=== PATIENT | female | born 1970 | race Caucasian/White ===

== ENCOUNTER 2019-01-28 23:29 | Inpatient (IN) | payer MEDICAID ==
[~2019-01-28] VITALS: Ht 167.6 cm; Wt 86.8 kg
[2019-01-28] MEDS ORDERED: SEROQUEL100 MG PO (23:30)
[2019-01-28] MEDS ORDERED: KLONOPIN0.5 MG PO (23:31)
[2019-01-28] MEDS ORDERED: GABAPENTIN100 MG PO (23:31)
[2019-01-28] MEDS ORDERED: CHRONULAC30 ML PO (23:32)
[2019-01-28] MEDS ORDERED: ALBUTEROL SULF8.5 GM INH (23:32)
[2019-01-28] MEDS ORDERED: METOPROLOL TART50 MG PO (23:33)
[2019-01-28] MEDS ORDERED: PROTONIX40 MG PO (23:33)
--- NOTE | 2019-01-28 23:44 | NUR ---
VERBAL ORDER TO CONTINUE OCLEOTIDE FROM [facility] GIVEN BY CATALINA BARRERA
[2019-01-29] VITALS (26 sets, daily range): BP systolic 110–132; BP diastolic 49–96; Ht 167.6 cm; Wt 86.8 kg
[2019-01-29 00:22] LABS: BASOPHILS 1.3 % (0-2); EOSINOPHILS 0.6 % (0-7); HEMOGLOBIN 5.9 g/dL (12-16); IMMATURE GRANULOCYTES 0.6 % (0-5); LYMPHOCYTES 26.4 % (15-50); MCHC 29.8 g/dL (31.0-37.0); MCV 65.8 fL (80.0-100.0); MONOCYTES 19.3 % (2-11); NEUTROPHILS 51.8 % (40-80); RBC 3.01 10x6/uL (4.00-5.40); RDW 27.9 % (11.5-14.5)
[2019-01-29 00:23] LABS: HEMATOCRIT 19.8 % (36.0-48.0); MCH 19.6 pg (26.0-34.0); PLATELET COUNT 159 10x3/uL (130-400)
--- NOTE | 2019-01-29 00:40 | NUR ---
PT ARRIVED ON UNIT, PLACED ON ICU MONITORS - TEMP ELEVATED 100.[address] CERRATO CONTACTED REGARDING CRITICAL LOW H&H - 4 UNITS PRBC ORDERED - RECHECK WITH AM LABS - 2 UNITS IF <7 ADMISSIONS ASSESSMENT COMPLETED SEE FLOWSHEET. VSS CPOC
[2019-01-29 00:47] LABS: ALBUMIN 2.4 g/dL (3.4-5.0); ANION GAP 14.4 mmol/L (8-16); BILIRUBIN - TOTAL 1.67 mg/dL (0.2-1.3); CALCIUM 7.4 mg/dL (8.5-10.1); CARBON DIOXIDE 24.4 mmol/L (21.0-32.0); POTASSIUM - SERUM 3.8 mmol/L (3.5-5.1); PROTEIN - SERUM 5.8 g/dL (6.4-8.2)
[2019-01-29 01:31] LABS: BASOPHILS 2 % (0-2); EOSINOPHILS 1 % (0-7); LYMPHOCYTES 34 % (15-50); MONOCYTES 19 % (2-11); NEUTROPHILS 44 % (40-80)
[2019-01-29 01:32] LABS: HYPOCHROMASIA 3+; POIKILOCYTOSIS 2+
[2019-01-29 01:33] LABS: PLATELET ESTIMATE NORMAL; PLATELET MORPHOLOGY GIANT PLTS PRESENT
--- NOTE | 2019-01-29 02:05 | NUR ---
VLADIMIR NOTIFIED REGARDING TEMP 101.5 - NEW ORDERS RECEIVED
--- NOTE | 2019-01-29 02:06 | NUR ---
1 UNIT PRBC INITIATED
--- NOTE | 2019-01-29 02:06 | NUR ---
BC X2 - UA WITH MICRO - 1 GRAM Q12 LEVAQUIN - MERREM Q8 - ORDERS PER DWORKIN FOR 101.5 TEMPERATURE
--- NOTE | 2019-01-29 03:05 | NUR ---
1 UNIT PRBC INITIATED
--- NOTE | 2019-01-29 03:45 | NUR ---
PATIENT REQUESTED BEDPAN - 475 CC URINE OUTPUT - DARK CONCENTRATED FOUL SMELL
--- NOTE | 2019-01-29 03:54 | NUR ---
REASSESSMENT COMPLETED SEE FLOWSHEET
--- NOTE | 2019-01-29 04:30 | NUR ---
1 UNIT PRBC INTIATED
--- NOTE | 2019-01-29 05:07 | NUR ---
PATIENT RESTING COMFORTABLY EYES CLOSED PRBC INFUSING. VSS CPOC
--- NOTE | 2019-01-29 05:40 | NUR ---
1 UNIT PRBC INITIATED
[2019-01-29 05:51] LABS: APPEARANCE HAZY (CLEAR); COLOR YELLOW (YELLOW)
[2019-01-29 05:52] LABS: BACTERIA FEW /hpf (NONE SEEN); BILIRUBIN 1+ (NEGATIVE); EPITHELIAL CELLS RARE /hpf (0-5); GLUCOSE NEGATIVE (NEGATIVE); KETONE NEGATIVE (NEGATIVE); NITRITE NEGATIVE (NEGATIVE); PROTEIN NEGATIVE (NEGATIVE); RED CELLS - URINE 0-5 /hpf (0-5); UROBILINOGEN NORMAL (NORMAL)
[2019-01-29 07:14] LABS: MCH 23.8 pg (26.0-34.0); MCHC 30.5 g/dL (31.0-37.0); PLATELET COUNT 147 10x3/uL (130-400); RDW 28.1 % (11.5-14.5); WBC 6.5 10x3/uL (4.8-10.8)
[2019-01-29 07:18] LABS: HEMATOCRIT 34.8 % (36.0-48.0); HEMOGLOBIN 10.6 g/dL (12-16); RBC 4.46 10x6/uL (4.00-5.40)
[2019-01-29 07:19] LABS: ALBUMIN 2.7 g/dL (3.4-5.0); ALKALINE PHOSPHATASE 84 U/L (46-116); ALT (SGPT) 43 U/L (10-68); BILIRUBIN - TOTAL 2.26 mg/dL (0.2-1.3); CALC OSMOLALITY 285 mosm/kg (275-300); CALCIUM 7.4 mg/dL (8.5-10.1); CARBON DIOXIDE 23.9 mmol/L (21.0-32.0); CHLORIDE - SERUM 107 mmol/L (98-107); CREATININE - SERUM 0.8 mg/dL (0.6-1.3); GLUCOSE 96 mg/dL (74-106); POTASSIUM - SERUM 3.9 mmol/L (3.5-5.1); PROTEIN - SERUM 6.2 g/dL (6.4-8.2); SODIUM 141 mmol/L (136-145); UREA NITROGEN 26 mg/dL (7-18); eGFR NON AFRICAN AMERICAN 80 mL/min (90-120)
[2019-01-29 07:48] LABS: EOSINOPHILS 3 % (0-7); LYMPHOCYTES 34 % (15-50); MONOCYTES 1 % (2-11); NEUTROPHILS 61 % (40-80); PLATELET ESTIMATE NORMAL
[2019-01-29 07:55] LABS: APTT 34.7 SECONDS (22.8-39.4); INR 1.5 (0.85-1.17); PROTIME 17.6 SECONDS (11.6-15.0)
--- NOTE | 2019-01-29 07:55 | NUR ---
CONTINENT VOID NOTED VIA BEDSIDE TOILET. NO ACUTE DISTRESS NOTED. WILL CONTINUE PLAN OF CARE.
--- NOTE | 2019-01-29 09:51 | NUR ---
DR CERRATO NOTIFIED OF CRITICALLY HIGH AMMONIA, STATED WILL PLACE ORDERS. ALSO STATED WILL ENDOSCOPY THURSDAY, OKAY TO START CLEAR LIQUID DIET NOW, AND WILL CONTINUE IV SANDOSTATIN AND PROTONIX FOR THE NEXT 24 HOURS. NO ACUTE DISTRESS NOTED. PT NOTED TO HAVE CONSTANT DRY HANKING COUGH. WILL NOTIFY DR GILBERT WHEN HE COMES TO SEE PT. PT INDEPENDENT IN BED. WILL CONTINUE PLAN OF CARE.
--- NOTE | 2019-01-29 10:25 | NUR ---
PER DR CERRATO, WILL EGD TODAY INSTEAD OF THURSDAY. PT HAS SPOKEN WITH PHYSICIANS AND ALL QUESTIONS AND CONCERNS ADRESSED. NO ACUTE DISTRESS NOTED. WILL CONTINUE PLAN OF CARE.
--- NOTE | 2019-01-29 11:19 | NUR ---
OXYGEN SATRUATION TRENDING 88%-91%. OXYGEN PLACED AT 3L VIA NC AT THIS TIME. OXYGEN SATURATION NOW AT 94%. DR EDWARDS NOTIFIED.
--- NOTE | 2019-01-29 11:22 | NUR ---
OXYGEN REDUCED TO 2L VIA NC PER [employer] PROFILER.
--- NOTE | 2019-01-29 13:25 | NUR ---
LYING IN BED RESTING AT THIS TIME. NO ACUTE DISTRESS NOTED. DENIES ANY NEEDS. RESPITATIONS STEADY AND UNLABORED. AWAKENS EASILY WHEN SPOKEN TO. PT INDEPENDENT IN BED AND REPOSITIONS Q2H. WILL CONTINUE PLAN OF CARE.
--- NOTE | 2019-01-29 14:59 | NUR ---
PT STATES SHE USES [facility] IN [place].
--- NOTE | 2019-01-29 16:15 | NUR ---
PER DR CERRATO, NO NEED FOR SERIAL H&H, WILL RECHECK LEVELS IN AM.
[2019-01-29 16:32] LABS: UDS - AMPHET NEGATIVE QUAL (NEGATIVE); UDS - BARB NEGATIVE QUAL (NEGATIVE); UDS - BENZO NEGATIVE QUAL (NEGATIVE); UDS - COCAINE NEGATIVE QUAL (NEGATIVE); UDS - OPIATE POSITIVE QUAL (NEGATIVE); UDS - PCP NEGATIVE QUAL (NEGATIVE); UDS - THC POSITIVE QUAL (NEGATIVE)
--- NOTE | 2019-01-29 18:16 | NUR ---
CONTINENT VOID NOTED VIA BED QUEEN AT THIS TIME. PT DENIES ANY NEEDS. NO ACUTE DISTRESS NOTED. WILL CONTINUE PLAN OF CARE.
--- NOTE | 2019-01-29 19:15 | NUR ---
SHIFT ASSESSMENT COMPLETED SEE FLOWSHEET. PATIENT STATES SHE IS IN PAIN - SEE EMAR FOR PRN MEDICATION ADMINISTRATION AND PAIN ASSESSMENT. DENIES ADDITIONAL NEEDS. VSS CPOC
--- NOTE | 2019-01-29 20:18 | NUR ---
PROVIDED PATIENT WITH BEVERAGE PER REQUEST
--- NOTE | 2019-01-29 23:45 | NUR ---
PT UP TO BEDSIDE COMMONDE. DYSPNEA ON EXERTION UNABLE TO MAINTAIN O2 SATS WITHOUT NASAL CANNULA - LIQUID DARK STOOL NOTED - STOOL SAMPLE COLLECTED AT THIS TIME. PATIENT IS ABLE TO AMBULATE HERSELF FROM BED TO CHAIR. PLACED PATIENT ON ALL ICU MONITORS UPON RETURNING TO BED. SHIFT ASSESSMENT COMPLETED SEE FLOWSHEET. PATIENT SAYS PAIN IS BETTER AND SHE IS FEELING BETTER. VSS CPOC
[2019-01-30] VITALS (25 sets, daily range): BP systolic 92–137; BP diastolic 56–86
--- NOTE | 2019-01-30 03:15 | NUR ---
REASSESSMENT COMPLETED SEE FLOWSHEET
--- NOTE | 2019-01-30 05:20 | NUR ---
PATIENT DENIES NEEDS AT THIS TIME VSS WILL CONTINUE TO MONITOR
[2019-01-30 07:29] LABS: ALBUMIN 2.2 g/dL (3.4-5.0); ALKALINE PHOSPHATASE 66 U/L (46-116); ALT (SGPT) 34 U/L (10-68); BILIRUBIN - TOTAL 1.27 mg/dL (0.2-1.3); CARBON DIOXIDE 24.1 mmol/L (21.0-32.0); CHLORIDE - SERUM 105 mmol/L (98-107); GLUCOSE 108 mg/dL (74-106); POTASSIUM - SERUM 3.6 mmol/L (3.5-5.1); PROTEIN - SERUM 5.5 g/dL (6.4-8.2); SODIUM 136 mmol/L (136-145)
[2019-01-30 07:32] LABS: CALC OSMOLALITY 271 mosm/kg (275-300); CREATININE - SERUM 0.5 mg/dL (0.6-1.3); UREA NITROGEN 10 mg/dL (7-18); eGFR NON AFRICAN AMERICAN > 90 mL/min (90-120)
[2019-01-30 07:33] LABS: CALCIUM 6.8 mg/dL (8.5-10.1)
[2019-01-30 08:13] LABS: BASOPHILS 2.2 % (0-2); EOSINOPHILS 4.7 % (0-7); HEMATOCRIT 31.3 % (36.0-48.0); HEMOGLOBIN 9.7 g/dL (12-16); IMMATURE GRANULOCYTES 0.8 % (0-5); LYMPHOCYTES 35.9 % (15-50); MCH 23.8 pg (26.0-34.0); MCV 76.7 fL (80.0-100.0); MONOCYTES 19.2 % (2-11); NEUTROPHILS 37.2 % (40-80); PLATELET COUNT 107 10x3/uL (130-400); RBC 4.08 10x6/uL (4.00-5.40); RDW 26.7 % (11.5-14.5); WBC 3.7 10x3/uL (4.8-10.8)
--- NOTE | 2019-01-30 08:22 | NUR ---
UP IN BED AWAKE AT THIS TIME. DENIES ANY NEEDS. NOTED TO STILL HAVE SOME DRY COUGHING AT TIMES. PT DENIES ANY NEEDS. NO ACUTE DISTRESS NOTED. WILL CONTINUE PLAN OF CARE.
--- NOTE | 2019-01-30 10:11 | NUR ---
AM MEDS GIVEN. PT REPORTING PAIN 8/10 ON ABDOMEN THAT IS INTERMITTENT. DILAUDID 1MG IV GIVEN PER ORDERS. PT ASKED TO PLACE CALL TO BRITT AT [phone]. DID NOT GET AN ANSWER. WILL TRY AGAIN LATER.
--- NOTE | 2019-01-30 11:39 | NUR ---
PT ASKING ABOUT HER HOME SEROQUIL AND KLONOPIN, ORDERS RECIEVED BY DR GILBERT.
--- NOTE | 2019-01-30 13:08 | NUR ---
ATTEMPTED TO CONTACT PTS EMERGENCY CONTACT PER PT REQUEST. NO ANSWER NOTED.
--- NOTE | 2019-01-30 15:20 | NUR ---
UP IN BED WATCHING TV AT THIS TIME. NO ACUTE DISTRESS NOTED. LETTY ANY NEEDS. WILL CONTINUE PLAN OF CARE.
--- NOTE | 2019-01-30 17:21 | NUR ---
CONTINENT VOID NOTED AT THIS TIME AT BEDSIDE TOILET. NO ACUTE DISTRESS NOTED. PT DENIES ANY NEEDS. WILL CONTINUE PLAN OF CARE.
--- NOTE | 2019-01-30 19:20 | NUR ---
RECEIVED PATIENT CARE. VSS, PATIENT FOUND TEARFUL, WORRIED ABOUT HER SON STEALING HER CARD. REQUESTED THIS NURSE TO PHONE A FRIEND FOR HER, LEFT MESSAGE ON VOICEMAIL. SHIFT ASSESSMENT COMPLETED SEE FLOWSHEET. CPOC
--- NOTE | 2019-01-30 19:40 | NUR ---
PT REQUESTED PRN PAIN MEDICATION, SEE EMAR FOR PAIN ASSESSMENT AND ADMINISTRATION
[2019-01-31] VITALS (9 sets, daily range): BP systolic 110–159; BP diastolic 56–98
--- NOTE | 2019-01-31 01:00 | NUR ---
PT REQUESTED PRN PAIN MEDICATION AT THIS TIME SEE EMAR FOR PAIN SCALE AND ADMINISTRATION
[2019-01-31 04:33] LABS: HEMATOCRIT 29.9 % (36.0-48.0); HEMOGLOBIN 9.1 g/dL (12-16); MCH 23.6 pg (26.0-34.0); MCHC 30.4 g/dL (31.0-37.0); MCV 77.7 fL (80.0-100.0); PLATELET COUNT 93 10x3/uL (130-400); RBC 3.85 10x6/uL (4.00-5.40); RDW 27.3 % (11.5-14.5); WBC 3.5 10x3/uL (4.8-10.8)
[2019-01-31 04:47] LABS: ALBUMIN 2.1 g/dL (3.4-5.0); ALKALINE PHOSPHATASE 74 U/L (46-116); ALT (SGPT) 35 U/L (10-68); BILIRUBIN - TOTAL 1.06 mg/dL (0.2-1.3); CARBON DIOXIDE 29.1 mmol/L (21.0-32.0); CHLORIDE - SERUM 105 mmol/L (98-107); CREATININE - SERUM 0.6 mg/dL (0.6-1.3); GLUCOSE 120 mg/dL (74-106); POTASSIUM - SERUM 3.2 mmol/L (3.5-5.1); PROTEIN - SERUM 5.4 g/dL (6.4-8.2); SODIUM 137 mmol/L (136-145); eGFR NON AFRICAN AMERICAN > 90 mL/min (90-120)
[2019-01-31 04:48] LABS: CALC OSMOLALITY 272 mosm/kg (275-300); CALCIUM 6.7 mg/dL (8.5-10.1); UREA NITROGEN 7 mg/dL (7-18)
--- NOTE | 2019-01-31 04:50 | NUR ---
CORRECTED CALCIUM 8.22 - NOT A CRITICALLY LOW RESULT. VSS CPOC
--- NOTE | 2019-01-31 05:25 | NUR ---
POTASSIUM REPLETION REQUIRED, PATIENT RECEIVED 40MEQ POTASSIUM POWDER - SEE EMAR FOR ADMINISTRATION
--- NOTE | 2019-01-31 07:00 | NUR ---
ASSESSMENT COMPLETE PER FLOWSHEET. VOICES NO CO AT TIME.
[2019-01-31 08:46] LABS: EOSINOPHILS 3 % (0-7); LYMPHOCYTES 47 % (15-50); MONOCYTES 9 % (2-11); NEUTROPHILS 40 % (40-80); PLATELET ESTIMATE DECREASED
--- NOTE | 2019-01-31 10:50 | NUR ---
SLEEPING NO DISTRESS NOTED. SR UP X 2. CALL LIGHT WITHIN REACH.
--- NOTE | 2019-01-31 12:40 | NUR ---
report called to maira polanco.
--- NOTE | 2019-01-31 12:58 | NUR ---
NUTRITION F/U PT TOLERATING FULL LIQUID DIET. FOR TX TO FLOOR. WILL CONTINUE TO PROVIDE DIET, MONITOR INTAKE. RD FOLLOWING
--- NOTE | 2019-01-31 14:08 | NUR ---
transfer to room 1205 via .
--- NOTE | 2019-01-31 14:10 | NUR ---
RECEIVED PT TO ROOM 1205 VIA WHEELCHAIR, PT ABLE TO AMBULATE FROM WHEELCHAIR TO CHAIR IN ROOM. ORIENED PT TO ROOM AND CALL LIGHT. PROVIDED PT WITH AMES FOND DU LAC SODA AND EXTRA GOWN. PT ON DROPLET ISOLATION FOR THE FLU. CALL LIGHT IN REACH, NAD NOTED, WILL CONTINUE TO MONITOR.
--- NOTE | 2019-01-31 23:32 | NUR ---
PATIENT RESTING IN BED WITH NO S/S OF DISTRESS. BROUGHT PATIENT FULL LIQUID SNACKS PER HER REQUEST. PATIENT DENIES OTHER NEEDS AT THIS TIME. BED IN LOWEST POSITION AND CALL LIGHT WITHIN REACH. ENCOURAGED THE PATIENT TO CALL IF SHE HAS NEEDS. WILL CONTINUE TO MONITOR.
[2019-02-01] VITALS: BP 122/69
[2019-02-01 04:00] VITALS: BP 132/73
[2019-02-01 06:11] LABS: BASOPHILS 0.4 % (0-2); EOSINOPHILS 0 % (0-7); HEMATOCRIT 31.1 % (36.0-48.0); HEMOGLOBIN 9.3 g/dL (12-16); IMMATURE GRANULOCYTES 0.4 % (0-5); LYMPHOCYTES 21.3 % (15-50); MCH 23.1 pg (26.0-34.0); MCHC 29.9 g/dL (31.0-37.0); MCV 77.2 fL (80.0-100.0); MONOCYTES 2.9 % (2-11); PLATELET COUNT 104 10x3/uL (130-400); RBC 4.03 10x6/uL (4.00-5.40); RDW 26.8 % (11.5-14.5)
[2019-02-01 06:24] LABS: WBC 2.4 10x3/uL (4.8-10.8)
[2019-02-01 06:42] LABS: ALBUMIN 2.4 g/dL (3.4-5.0); ALKALINE PHOSPHATASE 118 U/L (46-116); ALT (SGPT) 37 U/L (10-68); BILIRUBIN - TOTAL 0.85 mg/dL (0.2-1.3); CALC OSMOLALITY 276 mosm/kg (275-300); CALCIUM 7.2 mg/dL (8.5-10.1); CARBON DIOXIDE 25.9 mmol/L (21.0-32.0); CHLORIDE - SERUM 104 mmol/L (98-107); CREATININE - SERUM 0.5 mg/dL (0.6-1.3); POTASSIUM - SERUM 3.6 mmol/L (3.5-5.1); PROTEIN - SERUM 6.2 g/dL (6.4-8.2); SODIUM 137 mmol/L (136-145); UREA NITROGEN 6 mg/dL (7-18); eGFR NON AFRICAN AMERICAN > 90 mL/min (90-120)
[2019-02-01 07:22] LABS: GLUCOSE 187 mg/dL (74-106)
[2019-02-01 07:23] LABS: PHOSPHOROUS 1.5 mg/dL (2.5-4.9)
[2019-02-01 07:54] VITALS: BP 133/76
--- NOTE | 2019-02-01 10:55 | NUR ---
PAGEDimitry RUTLEDGE AND DR. COX, WAITING RISK PREVENTION ENGINEER BACK.
[2019-02-01 12:23] VITALS: BP 140/75
[2019-02-01] MEDS ORDERED: XIFAXAN550 MG PO (14:51)
[2019-02-01] MEDS ORDERED: SEROQUEL25 MG PO (14:51)
[2019-02-01] MEDS ORDERED: Nicoderm [PBKC] TRANSDERM (14:51)
[2019-02-01] MEDS ORDERED: CHRONULAC30 ML PO (14:52)
[2019-02-01] MEDS ORDERED: VITAMIN B-1100 M1 PO (14:52)
[2019-02-01] MEDS ORDERED: FOLIC ACID1 MG PO (14:52)
[2019-02-01] MEDS ORDERED: SINGULAIR10 MG PO (14:52)
[2019-02-01] MEDS ORDERED: MULTI-DAY VITAM1 TAB PO (14:52)
[2019-02-01] MEDS ORDERED: PREDNISONE10 MG PO (14:53)
[2019-02-01] MEDS ORDERED: LEVAQUIN750 MG PO (14:53)
[2019-02-01] MEDS ORDERED: Tessalon Perle PO (14:54)
--- NOTE | 2019-02-01 16:33 | MORECARE ---
CASE MANAGEMENT DISCHARGE SUMMARY PATIENT: RICH FARAH UNIT: [id number] ADM DATE: 01/28/19 AGE: 48 : 66 SEX: F ROOM/BED: D.1205 AUTHOR: GINA,DOC PHYSICIAN: REFERRING PHYSICIAN: CORBIN GILBERT MD DATE OF SERVICE: 02/01/19 Discharge Plan Patient Name: RICH FARAH Facility: [facility]:[place] : 1970 Planned Disposition: Home Anticipated Discharge Date: 02/01/19 Discharge Date: Expected LOS: 4 Initial Reviewer: [email or web address] Initial Review Date: 02/01/2019 Generated: 02/01/19 5:32 pm Comments DCP- Discharge Planning Updated by [id number]: Ember Barlow on 01/31/19 3:[address] 1530 HAD NOT RECEIVED TELEPHONE CALL FROM [facility] MANA[facility]'S OFFICE. LOCATED A PHONE NUMBER- [phone]. SHE HAD RECEIVED NOTIFICATION. REQUESTED MEDICAL DOCUMENTATION BE FAXED TO [phone]. SPOKE WITH THE PATIENT TO OBTAIN HER CONSENT TO SEND THE FACE SHEET. THEY HAD REQUESTED SPECIFIC INFORMATION. PATIENT CONSENTED. FAXED FACE SHEET TO ABOVE NUMBER. GAVE THE PATIENT COPY OF FAX CONFIRMATION AND FACE SHEET. COPY TO HER CHART IN CASE ANY QUESTIONS ARISE. RECEIVED A TELEPHONE CALL FROM VAULT WORKER'S OFFICE, TRUDY. SHE ALSO REQUESTED INFORMATION AND WANTED TO DISCUSS PATIENT'S HOSPITALIZATION. CM ADVISED I HAD FAXED THE FACE SHEET WITH HER ADMITTING DATE AND TIME. ADVISED THE PATIENT HAD BEEN TRANSFERED TO [facility] THIS AFTERNOON FROM ICU. DCP- Discharge Planning Updated by [id number]: Ember Barlow on 01/31/19 1:[address] PRIMARY NURSE, SARA, NOTIFIED CM OF REQUEST BY PATIENT TO CALL [facility]'S OFFICE AT [phone] TO ADVISE SHE IS HOSPITALIZED. SHE STATES SHE HAS A COURT DATE TOMORROW. TELEPHONE ABOVE NUMBER. SPOKE W/ DEVEN Dhaliwal. HE STATED HE WOULD HAVE TO CALL THE MANAGER CATEGORY'S OFFICE AND WILL GET BACK TO . CM PROVIDED 2 PHONE NUMBERS [phone] AND [phone] FOR CALL BACK CONTACT. DCPIA - Discharge Planning Initial Assessment Updated by [id number]: Shelly Lockhart on 02/01/19 4:32 pm * Is the patient Alert and Oriented? Yes * How many steps to enter\exit or inside your home? * PCP [place] * Pharmacy [facility] in [place] * Preadmission Environment Home with Family * ADLs Independent * Equipment None * Verbal permission to speak to the caregivers and representatives has been obtained from the patient. No * Community resources currently utilized None * Additional services required to return to the preadmission environment? No * Can the patient safely return to the preadmission environment? Yes * Has this patient been hospitalized within the prior 30 days at any hospital? No Patient Name: RICH FARAH Page [id number] at 1633 All edits/amendments must be made on the electronic document DICTATION DATE: 02/01/19 1632 PRESCHOOL SUBSTITUTE TEACHER: MAYCOL 02/01/19 1632 RPT#: [id number] DC DATE: STATUS: ADM IN [facility] [address] [place] [address] END OF REPORT
--- NOTE | 2019-02-01 16:43 | MORECARE ---
CASE MANAGEMENT DISCHARGE SUMMARY PATIENT: RICH FARAH UNIT: [id number] ADM DATE: 01/28/19 AGE: 48 : 66 SEX: F ROOM/BED: D.1205 AUTHOR: GINA,DOC PHYSICIAN: REFERRING PHYSICIAN: CORBIN GILBERT MD DATE OF SERVICE: 02/01/19 Discharge Plan Patient Name: RICH FARAH Facility: [facility]:[place] : 1970 Planned Disposition: Home Anticipated Discharge Date: 02/01/19 Discharge Date: Expected LOS: 4 Initial Reviewer: [email or web address] Initial Review Date: 02/01/2019 Generated: 02/01/19 5:42 pm Comments DCP- Discharge Planning Updated by [id number]: Shelly Lockhart on 02/01/19 3:[address] Patient Name: RICH FARAH Admission Status: ER Accout number: [id number] Admission Date: 01-28-2019 : 1970 Admission Diagnosis:GASTROINTESTINAL HEMORRHAGE, UNSPECIFIED Attending: CORBIN GILBERT Current LOS: 4 Anticipated DC Date: 02-01-2019 Planned Disposition: Home Primary Insurance: MEDICAID [place] Discharge Planning Comments: CM met with patient about discharge planning / needs. Patient states her plan is to return home where she lives with her sister. Denies need for home health or other discharge planning needs. States home environment is safe. Informed patient we could do a walk test to make sure she doesn't need oxygen at home but patient refused. States her ride will be here in 20 minutes and she is ready to leave. CM spoke with RT, Coty, about patient's oxygen. Coty stated patient does not need home oxygen. States her sats have been high. CM paged Dr. Clark to let him know patient is ready for discharge. CM will continue to follow and assist as needed with discharge planning needs. Physician Practice Coordinator: Shelly Lockhart DCP- Discharge Planning Updated by [email or web address]: Ember Barlow on 01/31/19 3:[address] 1530 HAD NOT RECEIVED TELEPHONE CALL FROM [facility] FRONT DESK HOST'S OFFICE. LOCATED A PHONE NUMBER- [phone]. SHE HAD RECEIVED NOTIFICATION. REQUESTED MEDICAL DOCUMENTATION BE FAXED TO [phone]. CM SPOKE WITH THE PATIENT TO OBTAIN HER CONSENT TO SEND THE FACE SHEET. THEY HAD REQUESTED SPECIFIC INFORMATION. PATIENT CONSENTED. FAXED FACE SHEET TO ABOVE NUMBER. GAVE THE PATIENT COPY OF FAX CONFIRMATION AND FACE SHEET. COPY TO HER CHART IN CASE ANY QUESTIONS ARISE. RECEIVED A TELEPHONE CALL FROM GRATING MACHINE OPERATOR'S OFFICE, TRUDY. SHE ALSO REQUESTED INFORMATION AND WANTED TO DISCUSS PATIENT'S HOSPITALIZATION. CM ADVISED I HAD FAXED THE FACE SHEET WITH HER ADMITTING DATE AND TIME. ADVISED THE PATIENT HAD BEEN TRANSFERED TO [facility] THIS AFTERNOON FROM ICU. DCP- Discharge Planning Updated by [id number]: Ember Barlow on 01/31/19 1:[address] PRIMARY NURSE, SARA, NOTIFIED CM OF REQUEST BY PATIENT TO CALL [facility]'S OFFICE AT [phone] TO ADVISE SHE IS HOSPITALIZED. SHE STATES SHE HAS A COURT DATE TOMORROW. TELEPHONE ABOVE NUMBER. SPOKE W/ DEVEN Dhaliwal. HE STATED HE WOULD HAVE TO CALL THE FRONT DESK HOST'S OFFICE AND WILL GET BACK TO CM. CM PROVIDED 2 PHONE NUMBERS [phone] AND [phone] FOR CALL BACK CONTACT. DCPIA - Discharge Planning Initial Assessment Updated by [id number]: Shelly Lockhart on 02/01/19 4:32 pm * Is the patient Alert and Oriented? Yes * How many steps to enter\exit or inside your home? * PCP [place] * Pharmacy [facility] in [place] * Preadmission Environment Home with Family * ADLs Independent * Equipment None * Verbal permission to speak to the caregivers and representatives has been obtained from the patient. No * Community resources currently utilized None * Additional services required to return to the preadmission environment? No * Can the patient safely return to the preadmission environment? Yes * Has this patient been hospitalized within the prior 30 days at any hospital? No Last DP export: 02/01/19 3:33 pm Patient Name: RICH FARAH Page 54840 at 2713 All edits/amendments must be made on the electronic document DICTATION DATE: 02/01/19 1642 PROFESSOR OF RELIGION: MAYCOL 02/01/19 1642 RPT#: [id number] DC DATE: STATUS: ADM IN [facility] [address] [place] [address] END OF REPORT
[2019-02-01] MEDS ORDERED: IPRAT-ALBUT 0.5-3 ML UPD (16:56)
--- NOTE | 2019-02-01 16:59 | NUR ---
CALLED [facility] AND SPOKE WITH ROBERTO STEVENS FOR DUONEB QID. ONE MONTH SUPPLY.
--- NOTE | 2019-02-01 17:04 | MORECARE ---
CASE MANAGEMENT DISCHARGE SUMMARY PATIENT: RICH FARAH UNIT: [id number] ADM DATE: 01/28/19 AGE: 48 : 66 SEX: F ROOM/BED: D.1205 AUTHOR: GINA,DOC PHYSICIAN: REFERRING PHYSICIAN: CORBIN GILBERT MD DATE OF SERVICE: 02/01/19 Discharge Plan Patient Name: RICH AFRAH Facility: [facility]:[place] : 1970 Planned Disposition: Home Anticipated Discharge Date: 02/01/19 Discharge Date: Expected LOS: 4 Initial Reviewer: [id number] Initial Review Date: 02/01/2019 Generated: 02/01/19 6:04 pm Comments DCP- Discharge Planning Updated by [email or web address]: Shelly Lockhart on 02/01/19 4:[address] CM received order for Nebulizer. Patient signed ROSARIO for [facility]. CM called [facility] and placed order for Nebulizer. Was told it would be delivered in 10 minutes. CM faxed records as requested. Awaiting delivery of Nebulizer DCP- Discharge Planning Updated by [email or web address]: Shelly Lockhart on 02/01/19 3:[address] Patient Name: RICH FARAH Admission Status: ER Accout number: [id number] Admission Date: 01-28-2019 : 1970 Admission Diagnosis:GASTROINTESTINAL HEMORRHAGE, UNSPECIFIED Attending: CORBIN GILBERT Current LOS: 4 Anticipated DC Date: 02-01-2019 Planned Disposition: Home Primary Insurance: MEDICAID [place] Discharge Planning Comments: CM met with patient about discharge planning / needs. Patient states her plan is to return home where she lives with her sister. Denies need for home health or other discharge planning needs. States home environment is safe. Informed patient we could do a walk test to make sure she doesn't need oxygen at home but patient refused. States her ride will be here in 20 minutes and she is ready to leave. CM spoke with RT, Coty, about patient's oxygen. Coty stated patient does not need home oxygen. States her sats have been high. CM paged Dr. Clark to let him know patient is ready for discharge. CM will continue to follow and assist as needed with discharge planning needs. Laboratory Scientist: Shelly Lockhart DCP- Discharge Planning Updated by [id number]: Ember Barlow on 01/31/19 3:[address] 1530 HAD NOT RECEIVED TELEPHONE CALL FROM [facility] SOR[facility]'S OFFICE. LOCATED A PHONE NUMBER- [phone]. SHE HAD RECEIVED NOTIFICATION. REQUESTED MEDICAL DOCUMENTATION BE FAXED TO [phone]. CM SPOKE WITH THE PATIENT TO OBTAIN HER CONSENT TO SEND THE FACE SHEET. THEY HAD REQUESTED SPECIFIC INFORMATION. PATIENT CONSENTED. FAXED FACE SHEET TO ABOVE NUMBER. GAVE THE PATIENT COPY OF FAX CONFIRMATION AND FACE SHEET. COPY TO HER CHART IN CASE ANY QUESTIONS ARISE. RECEIVED A TELEPHONE CALL FROM ALLOY WEIGHER'S OFFICE, TRUDY. SHE ALSO REQUESTED INFORMATION AND WANTED TO DISCUSS PATIENT'S HOSPITALIZATION. CM ADVISED I HAD FAXED THE FACE SHEET WITH HER ADMITTING DATE AND TIME. ADVISED THE PATIENT HAD BEEN TRANSFERED TO [facility] THIS AFTERNOON FROM ICU. DCP- Discharge Planning Updated by [id number]: Ember Barlow on 01/31/19 1:[address] PRIMARY NURSE, SARA, NOTIFIED CM OF REQUEST BY PATIENT TO CALL [facility]'S OFFICE AT [phone] TO ADVISE SHE IS HOSPITALIZED. SHE STATES SHE HAS A COURT DATE TOMORROW. TELEPHONE ABOVE NUMBER. SPOKE W/ DEVEN Dhaliwal. HE STATED HE WOULD HAVE TO CALL THE SPOOL SORTER'S OFFICE AND WILL GET BACK TO . PROVIDED 2 PHONE NUMBERS [phone] AND [phone] FOR CALL BACK CONTACT. DCPIA - Discharge Planning Initial Assessment Updated by [id number]: Shelly Lockhart on 02/01/19 4:32 pm * Is the patient Alert and Oriented? Yes * How many steps to enter\exit or inside your home? * PCP [place] * Pharmacy [facility] in [place] * Preadmission Environment Home with Family * ADLs Independent * Equipment None * Verbal permission to speak to the caregivers and representatives has been obtained from the patient. No * Community resources currently utilized None * Additional services required to return to the preadmission environment? No * Can the patient safely return to the preadmission environment? Yes * Has this patient been hospitalized within the prior 30 days at any hospital? No External Providers External Provider: [facility] Next Contact Date: Service Request Date: Service Type: Resolution: Reviewer: Comments: Coverage Notice Reviewer: [id number] - Shelly Richy Notice Issued Date-Time: 02/01/2019 16:25 Notice Type: Patient Choice Letter Notice Delivered To: Patient Relationship to Patient: Self Weed Controller Name: Delivery Method: HAND - Hand Delivered Danielle Days: Prior Verbal Notification: Recipient Understood Notice: Yes Recipient Signature: Yes Med Rec Note Co-signed by Attending: Coverage Notice Comment: Last DP export: 02/01/19 3:42 pm Patient Name: RICH FARAH Page [phone] at 1704 All edits/amendments must be made on the electronic document DICTATION DATE: 02/01/191703 PLANT BIOLOGY PROFESSOR: MAYCOL 02/01/191703 RPT#: [id number] DC DATE: STATUS: ADM IN [facility] [address] [place] [address] END OF REPORT
--- NOTE | 2019-02-01 17:13 | MORECARE ---
CASE MANAGEMENT DISCHARGE SUMMARY PATIENT: RICH FARAH UNIT: [id number] ADM DATE: 01/28/19 AGE: 48 : 66 SEX: F ROOM/BED: D.1205 AUTHOR: GINA,DOC PHYSICIAN: REFERRING PHYSICIAN: CORBIN GILBERT MD DATE OF SERVICE: 02/01/19 Discharge Plan Patient Name: RICH FARAH Facility: [facility]:[place] : 1970 Planned Disposition: Home Anticipated Discharge Date: 02/01/19 Discharge Date: Expected LOS: 4 Initial Reviewer: [email or web address] Initial Review Date: 02/01/2019 Generated: 02/01/19 6:13 pm Comments DCP- Discharge Planning Updated by [id number]: Shelly Lockhart on 02/01/19 4:[address] Nebulizer delivered. Patient still waiting for her ride to arrive. CM informed nurse, Sara. DCP- Discharge Planning Updated by [email or web address]: Shelly Lockhart on 02/01/19 4:[address] CM received order for Nebulizer. Patient signed ROSARIO for [facility]. CM called [facility] and placed order for Nebulizer. Was told it would be delivered in 10 minutes. CM faxed records as requested. Awaiting delivery of Nebulizer DCP- Discharge Planning Updated by [email or web address]: Shelly Lockhart on 02/01/19 3:[address] Patient Name: RICH FARAH Admission Status: ER Accout number: [id number] Admission Date: 01-28-2019 : 1970 Admission Diagnosis:GASTROINTESTINAL HEMORRHAGE, UNSPECIFIED Attending: CORBIN GILBERT Current LOS: 4 Anticipated DC Date: 02-01-2019 Planned Disposition: Home Primary Insurance: MEDICAID [place] Discharge Planning Comments: CM met with patient about discharge planning / needs. Patient states her plan is to return home where she lives with her sister. Denies need for home health or other discharge planning needs. States home environment is safe. Informed patient we could do a walk test to make sure she doesn't need oxygen at home but patient refused. States her ride will be here in 20 minutes and she is ready to leave. CM spoke with RTCoty, about patient's oxygen. Coty stated patient does not need home oxygen. States her sats have been high. CM paged Dr. Clark to let him know patient is ready for discharge. CM will continue to follow and assist as needed with discharge planning needs. Entry Level Sales Associate: Shelly Lockhart DCP- Discharge Planning Updated by [id number]: Ember Barlow on 01/31/19 3:[address] 1530 HAD NOT RECEIVED TELEPHONE CALL FROM [facility] DOWEL DRAWING OPERATOR'S OFFICE. LOCATED A PHONE NUMBER- [phone]. SHE HAD RECEIVED NOTIFICATION. REQUESTED MEDICAL DOCUMENTATION BE FAXED TO [phone]. CM SPOKE WITH THE PATIENT TO OBTAIN HER CONSENT TO SEND THE FACE SHEET. THEY HAD REQUESTED SPECIFIC INFORMATION. PATIENT CONSENTED. FAXED FACE SHEET TO ABOVE NUMBER. GAVE THE PATIENT COPY OF FAX CONFIRMATION AND FACE SHEET. COPY TO HER CHART IN CASE ANY QUESTIONS ARISE. RECEIVED A TELEPHONE CALL FROM DOORSHAKER'S OFFICE, TRUDY. SHE ALSO REQUESTED INFORMATION AND WANTED TO DISCUSS PATIENT'S HOSPITALIZATION. CM ADVISED I HAD FAXED THE FACE SHEET WITH HER ADMITTING DATE AND TIME. ADVISED THE PATIENT HAD BEEN TRANSFERED TO [facility] THIS AFTERNOON FROM ICU. DCP- Discharge Planning Updated by [id number]: Ember Barlow on 01/31/19 1:[address] PRIMARY NURSE, SARA, NOTIFIED CM OF REQUEST BY PATIENT TO CALL [facility]'S OFFICE AT [phone] TO ADVISE SHE IS HOSPITALIZED. SHE STATES SHE HAS A COURT DATE TOMORROW. TELEPHONE ABOVE NUMBER. SPOKE Derik/ DEVEN Dhaliwal. HE STATED HE WOULD HAVE TO CALL THE [facility] DOWEL DRAWING OPERATOR'S OFFICE AND WILL GET BACK TO CM. CM PROVIDED 2 PHONE NUMBERS [phone] AND [phone] FOR CALL BACK CONTACT. DCPIA - Discharge Planning Initial Assessment Updated by [email or web address]: Shelly Lockhart on 02/01/19 4:32 pm * Is the patient Alert and Oriented? Yes * How many steps to enter\exit or inside your home? * PCP Dr. Wade Coleman, [place] * Pharmacy [facility] in [place] * Preadmission Environment Home with Family * ADLs Independent * Equipment None * Verbal permission to speak to the caregivers and representatives has been obtained from the patient. No * Community resources currently utilized None * Additional services required to return to the preadmission environment? No * Can the patient safely return to the preadmission environment? Yes * Has this patient been hospitalized within the prior 30 days at any hospital? No Coverage Notice Reviewer: [id number] Jaxson Lockhart Notice Issued Date-Time: 02/01/2019 16:25 Notice Type: Patient Choice Letter Notice Delivered To: Patient Relationship to Patient: Self Hide Examiner Name: Delivery Method: HAND - Hand Delivered Danielle Days: Prior Verbal Notification: Recipient Understood Notice: Yes Recipient Signature: Yes Med Rec Note Co-signed by Attending: Coverage Notice Comment: Last DP export: 02/01/19 4:04 pm Patient Name: RICH FARAH Page 20707 at 1713 All edits/amendments must be made on the electronic document DICTATION DATE: 02/01/191712 STRUCTURED CABLING TECHNICIAN: MAYCOL 02/01/191712 RPT#: [id number] DC DATE: STATUS: ADM IN [facility] [address] [place] [address] END OF REPORT
--- NOTE | 2019-02-01 17:41 | NUR ---
PROVIDED VERBAL AND WRITTEN DISCHARGE TEACHING, D/C RT WRSIT IV WITH TIP INTACT.
--- NOTE | 2019-02-02 11:22 | MORECARE ---
CASE MANAGEMENT DISCHARGE SUMMARY PATIENT: RICH FARAH UNIT: [id number] ADM DATE: 01/28/19 AGE: 48 : 66 SEX: F ROOM/BED: D.1205 AUTHOR: GINA,DOC PHYSICIAN: REFERRING PHYSICIAN: CORBIN GILBERT MD DATE OF SERVICE: 02/02/19 Discharge Plan Patient Name: RICH FARAH Facility: [facility]:[place] : 1970 Planned Disposition: Home Anticipated Discharge Date: 02/01/19 Discharge Date: 02/01/2019 Expected LOS: 4 Initial Reviewer: [id number] Initial Review Date: 02/01/2019 Generated: 02/02/19 12:22 pm Comments DCP- Discharge Planning Updated by [email or web address]: Shelly Lockhart on 02/01/19 4:[address] Nebulizer delivered. Patient still waiting for her ride to arrive. CM informed nurse, Sara. DCP- Discharge Planning Updated by [id number]: Shelly Lockhart on 02/01/19 4:[address] CM received order for Nebulizer. Patient signed ROSARIO for [facility] and [facility]. CM called [facility] and placed order for Nebulizer. Was told it would be delivered in 10 minutes. CM faxed records as requested. Awaiting delivery of Nebulizer DCP- Discharge Planning Updated by [email or web address]: Shelly Lockhart on 02/01/19 3:[address] Patient Name: RICH FARAH Admission Status: ER Accout number: [id number] Admission Date: 01-28-2019 : 1970 Admission Diagnosis:GASTROINTESTINAL HEMORRHAGE, UNSPECIFIED Attending: CORBIN GILBERT Current LOS: 4 Anticipated DC Date: 02-01-2019 Planned Disposition: Home Primary Insurance: MEDICAID [place] Discharge Planning Comments: CM met with patient about discharge planning / needs. Patient states her plan is to return home where she lives with her sister. Denies need for home health or other discharge planning needs. States home environment is safe. Informed patient we could do a walk test to make sure she doesn't need oxygen at home but patient refused. States her ride will be here in 20 minutes and she is ready to leave. CM spoke with RTCoty, about patient's oxygen. Coty stated patient does not need home oxygen. States her sats have been high. CM paged Dr. Clark to let him know patient is ready for discharge. CM will continue to follow and assist as needed with discharge planning needs. Pot Firer: Shelly Lockhart DCP- Discharge Planning Updated by [id number]: Ember Barlow on 01/31/19 3:[address] 1530 HAD NOT RECEIVED TELEPHONE CALL FROM [facility] PATTERN CHANGER'S OFFICE. LOCATED A PHONE NUMBER- [phone]. SHE HAD RECEIVED NOTIFICATION. REQUESTED MEDICAL DOCUMENTATION BE FAXED TO [phone]. CM SPOKE WITH THE PATIENT TO OBTAIN HER CONSENT TO SEND THE FACE SHEET. THEY HAD REQUESTED SPECIFIC INFORMATION. PATIENT CONSENTED. FAXED FACE SHEET TO ABOVE NUMBER. GAVE THE PATIENT COPY OF FAX CONFIRMATION AND FACE SHEET. COPY TO HER CHART IN CASE ANY QUESTIONS ARISE. RECEIVED A TELEPHONE CALL FROM VULNERABILITY RESEARCHER'S OFFICE, TRUDY. SHE ALSO REQUESTED INFORMATION AND WANTED TO DISCUSS PATIENT'S HOSPITALIZATION. CM ADVISED I HAD FAXED THE FACE SHEET WITH HER ADMITTING DATE AND TIME. ADVISED THE PATIENT HAD BEEN TRANSFERED TO [facility] THIS AFTERNOON FROM ICU. DCP- Discharge Planning Updated by [email or web address]: Ember Barlow on 01/31/19 1:[address] PRIMARY NURSE, SARA, NOTIFIED CM OF REQUEST BY PATIENT TO CALL [facility]'S OFFICE AT [phone] TO ADVISE SHE IS HOSPITALIZED. SHE STATES SHE HAS A COURT DATE TOMORROW. TELEPHONE ABOVE NUMBER. SPOKE W/ DEVEN Dhaliwal. HE STATED HE WOULD HAVE TO CALL THE PATTERN CHANGER'S OFFICE AND WILL GET BACK TO . CM PROVIDED 2 PHONE NUMBERS [phone] AND [phone] FOR CALL BACK CONTACT. DCPIA - Discharge Planning Initial Assessment Updated by [id number]: Shelly Lockhart on 02/01/19 4:32 pm * Is the patient Alert and Oriented? Yes * How many steps to enter\exit or inside your home? * PCP Milly [place] * Pharmacy [facility] in [place] * Preadmission Environment Home with Family * ADLs Independent * Equipment None * Verbal permission to speak to the caregivers and representatives has been obtained from the patient. No * Community resources currently utilized None * Additional services required to return to the preadmission environment? No * Can the patient safely return to the preadmission environment? Yes * Has this patient been hospitalized within the prior 30 days at any hospital? No Coverage Notice Reviewer: [id number] Jaxson MedinaShellymo Lockhart Notice Issued Date-Time: 02/01/2019 16:25 Notice Type: Patient Choice Letter Notice Delivered To: Patient Relationship to Patient: Self Snipper Name: Delivery Method: HAND - Hand Delivered Danielle Days: Prior Verbal Notification: Recipient Understood Notice: Yes Recipient Signature: Yes Med Rec Note Co-signed by Attending: Coverage Notice Comment: Last DP export: 02/01/19 4:13 pm Patient Name: RICH FARAH Page 77586 at 1122 All edits/amendments must be made on the electronic document DICTATION DATE: 02/02/19 112 QUALITY REVIEW SPECIALIST: MAYCOL 02/02/19 1122 RPT#: [id number] DC DATE:02/01/19 STATUS: DIS IN [facility] [address] [place] [address] END OF REPORT
== END 2019-02-01 18:26 | disposition home or self-care (01) | DRG 432 ==
LOC: D.ER 23:29 → D.EDHOLD 23:56 → D.ICU 23:56 → D.M3 23:56 → D.ICU 01-29 00:09 → D.M3 01-31 14:03
PROVIDERS: Emergency Medicine; Internal Medicine Gastroenterology; ADMIT Internal Medicine Nephrology; ATTEND Internal Medicine Nephrology
PROC: 06L38CZ Occlusion of Esophageal Vein with Extraluminal Device, Via Natural or Artificial Opening Endoscopic (ICD-10-PCS; principal; 2019-01-29 13:01)
DX: K70.30 Alcoholic cirrhosis of liver without ascites (principal); I85.11 Secondary esophageal varices with bleeding; D62 Acute posthemorrhagic anemia; N17.9 Acute kidney failure, unspecified; J44.1 Chronic obstructive pulmonary disease with (acute) exacerbation; F17.203 Nicotine dependence unspecified, with withdrawal; K76.6 Portal hypertension; J44.0 Chronic obstructive pulmonary disease with (acute) lower respiratory infection; B19.20 Unspecified viral hepatitis C without hepatic coma; K31.89 Other diseases of stomach and duodenum; J10.1 Influenza due to other identified influenza virus with other respiratory manifestations; J20.9 Acute bronchitis, unspecified; D69.6 Thrombocytopenia, unspecified

== ENCOUNTER 2020-01-14 11:51 | Inpatient (IN) | payer MEDICAID ==
[~2020-01-14] VITALS: Ht 167.6 cm; Wt 63.6 kg
[~2020-01-14 11:51] MED LIST: ALBUTEROL SULF8.5 GM INH; CHRONULAC30 ML PO; FOLIC ACID1 MG PO; GABAPENTIN100 MG PO; IPRAT-ALBUT 0.5-3 ML UPD; KLONOPIN0.5 MG PO; LEVAQUIN750 MG PO; METOPROLOL TART50 MG PO; MULTI-DAY VITAM1 TAB PO; Nicoderm [PBKC] TRANSDERM; PREDNISONE10 MG PO; PROTONIX40 MG PO; SEROQUEL100 MG PO; SEROQUEL25 MG PO; SINGULAIR10 MG PO; Tessalon Perle PO; VITAMIN B-1100 M1 PO; XIFAXAN550 MG PO
[2020-01-14 13:34] LABS: BILIRUBIN NEGATIVE (NEGATIVE); GLUCOSE NEGATIVE (NEGATIVE); KETONE NEGATIVE (NEGATIVE); NITRITE NEGATIVE (NEGATIVE); UROBILINOGEN NORMAL (NORMAL)
[2020-01-14 13:38] LABS: RED CELLS - URINE 0-5 /hpf (0-5); WHITE CELLS - URINE 25-50 /hpf (NEGATIVE)
[2020-01-14 13:39] LABS: BACTERIA MODERATE /hpf (NEGATIVE); EPITHELIAL CELLS 0-5 /hpf (0-5)
[2020-01-14 13:56] LABS: BASOPHILS 0.3 % (0-2); EOSINOPHILS 0.5 % (0-7); HEMOGLOBIN 8.3 g/dL (12-16); IMMATURE GRANULOCYTES 0.3 % (0-5); LYMPHOCYTES 6.7 % (15-50); MCHC 27.7 g/dL (31.0-37.0); MCV 64.8 fL (80.0-100.0); MONOCYTES 4.7 % (2-11); NEUTROPHILS 87.5 % (40-80); RBC 4.63 10x6/uL (4.00-5.40); RDW 19.9 % (11.5-14.5); WBC 14.4 10x3/uL (4.8-10.8)
[2020-01-14 13:59] LABS: MCH 17.9 pg (26.0-34.0); PLATELET COUNT 201 10x3/uL (130-400)
[2020-01-14 14:01] LABS: CALC OSMOLALITY 273 mosm/kg (275-300); CARBON DIOXIDE 25.2 mmol/L (21.0-32.0); CHLORIDE - SERUM 102 mmol/L (98-107); CREATININE - SERUM 0.6 mg/dL (0.6-1.3); POTASSIUM - SERUM 3.1 mmol/L (3.5-5.1); SODIUM 138 mmol/L (136-145); UREA NITROGEN 7 mg/dL (7-18); eGFR NON AFRICAN AMERICAN > 90 mL/min (90-120)
[2020-01-14 14:03] LABS: GLUCOSE 90 mg/dL (74-106)
[2020-01-14 14:10] LABS: ALBUMIN 3.3 g/dL (3.4-5.0); ALKALINE PHOSPHATASE 137 U/L (30-120); ALT (SGPT) 20 U/L (10-68); AMYLASE - SERUM 26 U/L (25-115); BILIRUBIN - TOTAL 0.98 mg/dL (0.2-1.3); PROTEIN - SERUM 7.7 g/dL (6.4-8.2)
[2020-01-14 14:11] LABS: LIPASE 42 U/L (73-393); TROPONIN-I < 0.017 ng/mL (0.000-0.060)
[2020-01-14 17:58] VITALS: BP 111/55; Ht 167.6 cm; Wt 63.6 kg
[2020-01-14 19:46] VITALS: BP 113/72
--- NOTE | 2020-01-14 20:00 | NUR ---
PATIENT RESTING IN BED AND EATING A SANDWICH. NO S/S OF DISTRESS. NO C/O AT THIS TIME. PATIENT HAS LEFT HAND IV NORMAL SALINE @ 125 ML/HR. IV IS PATENT WITHOUT REDNESS, SWELLING, OR TENDERNESS. PATIENT ABDOMEN IS SLIGHTLY DISTENDED. PATIENT IS HAVING A DRY COUGH. PATIENT HAS SOME SLIGHT INCONTINENCE AND USES BRIEFS, BUT OTHERWISE IS CONTENT. PATIENT IS UP AD-SORAIDA. CALL LIGHT IN PLACE. WILL CONTINUE TO MONITOR.
[2020-01-15] VITALS (12 sets, daily range): BP systolic 91–148; BP diastolic 49–84
--- NOTE | 2020-01-15 01:30 | NUR ---
PATIENT WALKED OUT OF ROOM TO ASK FOR THE TEMPERATURE TO BE TURNED DOWN, AND ALSO MENTIONED THAT IV HAD FALLEN OUT. PATIENT WAS INSTRUCTED THAT IF SHE NEEDED HELP, OR IF SOMETHING HAPPENED TO HER IV SHE NEEDED TO USE HER CALL LIGHT. CATHETER TIP INTACT. IV PLACED IN LEFT FOREARM. IV IS PATENT WIHTOUT REDNESS, SWELLING, OR TENDERNESS. CALL LIGHT IN PLACE. WILL CONTINUE TO MONITOR.
--- NOTE | 2020-01-15 04:53 | NUR ---
I have reviewed this patient and I concur with the Shift Assessment completed by the Licensed Practical Nurse today this shift.
[2020-01-15 06:27] LABS: BASOPHILS 0 % (0-2); EOSINOPHILS 0 % (0-7); HEMATOCRIT 25.4 % (36.0-48.0); IMMATURE GRANULOCYTES 0.1 % (0-5); LYMPHOCYTES 6.2 % (15-50); MCHC 27.6 g/dL (31.0-37.0); MONOCYTES 3.4 % (2-11); NEUTROPHILS 90.3 % (40-80); RBC 3.97 10x6/uL (4.00-5.40); RDW 19.5 % (11.5-14.5)
[2020-01-15 06:57] LABS: INR 1.45 (0.85-1.17); PROTIME 17.5 SECONDS (11.6-15.0)
[2020-01-15 07:10] LABS: ALBUMIN 2.6 g/dL (3.4-5.0); ALKALINE PHOSPHATASE 100 U/L (30-120); ALT (SGPT) 19 U/L (10-68); BILIRUBIN - TOTAL 0.53 mg/dL (0.2-1.3); CALCIUM 8.1 mg/dL (8.5-10.1); CARBON DIOXIDE 24.4 mmol/L (21.0-32.0); CHLORIDE - SERUM 106 mmol/L (98-107); CREATININE - SERUM 0.6 mg/dL (0.6-1.3); FERRITIN 26 ng/mL (3-244); MAGNESIUM - SERUM 1.9 mg/dL (1.8-2.4); POTASSIUM - SERUM 3.4 mmol/L (3.5-5.1); PROTEIN - SERUM 6.3 g/dL (6.4-8.2); SODIUM 138 mmol/L (136-145); eGFR NON AFRICAN AMERICAN > 90 mL/min (90-120)
[2020-01-15 07:11] LABS: CALC OSMOLALITY 276 mosm/kg (275-300); GLUCOSE 140 mg/dL (74-106); UREA NITROGEN 10 mg/dL (7-18)
[2020-01-15 07:12] LABS: % SATURATION 2 % (15-55); IRON 9 ug/dl (35-150); TOTAL IRON BIND CAPACITY 352 ug/dl (260-445); UNSAT IRON BIND CAPACITY 343 ug/dl (150-375)
[2020-01-15 07:13] LABS: WBC 7.4 10x3/uL (4.8-10.8)
[2020-01-15 07:14] LABS: MCH 17.6 pg (26.0-34.0); PLATELET COUNT 153 10x3/uL (130-400)
--- NOTE | 2020-01-15 07:30 | NUR ---
WILL RAMIREZ AWARE OF PT HBG OF 7.0, WILL RECHECK THESE RESULTS
[2020-01-15 09:02] LABS: HEMATOCRIT 26.7 % (36.0-48.0)
[2020-01-15 09:22] LABS: HEMOGLOBIN 7.4 g/dL (12-16)
--- NOTE | 2020-01-15 09:42 | NUR ---
NEW ORDERS NOTED IN RESPONSE TO HGB OF 7.4, PT WANTING TO D/C HOME TODAY, STATES THAT SHE DOESNT KNOW WHY SHE IS HERE
--- NOTE | 2020-01-15 16:03 | NUR ---
RESTING IN BED, WANTING TO BE D/C, IV INFUSING, AWAITING LAB TO CALL ABOUT BLOOD
--- NOTE | 2020-01-15 16:23 | NUR ---
1ST UNIT OF BLOOD STARTED
[2020-01-15 18:27] LABS: UDS - AMPHET NEGATIVE QUAL (NEGATIVE); UDS - BARB POSITIVE QUAL (NEGATIVE); UDS - BENZO POSITIVE QUAL (NEGATIVE); UDS - COCAINE NEGATIVE QUAL (NEGATIVE); UDS - OPIATE NEGATIVE QUAL (NEGATIVE); UDS - PCP NEGATIVE QUAL (NEGATIVE); UDS - THC POSITIVE QUAL (NEGATIVE)
--- NOTE | 2020-01-15 19:00 | NUR ---
1ST UNIT OF BLOOD CONT, DOREEN WELL
[2020-01-16] VITALS: BP 121/70
[2020-01-16 04:00] VITALS: BP 118/62
[2020-01-16 07:11] LABS: ALBUMIN 2.3 g/dL (3.4-5.0); ALKALINE PHOSPHATASE 106 U/L (30-120); ALT (SGPT) 18 U/L (10-68); BILIRUBIN - TOTAL 0.73 mg/dL (0.2-1.3); CALC OSMOLALITY 287 mosm/kg (275-300); CALCIUM 7.8 mg/dL (8.5-10.1); CARBON DIOXIDE 22.3 mmol/L (21.0-32.0); CHLORIDE - SERUM 115 mmol/L (98-107); CREATININE - SERUM 0.5 mg/dL (0.6-1.3); MAGNESIUM - SERUM 1.7 mg/dL (1.8-2.4); POTASSIUM - SERUM 3.9 mmol/L (3.5-5.1); PROTEIN - SERUM 5.3 g/dL (6.4-8.2); SODIUM 146 mmol/L (136-145); UREA NITROGEN 8 mg/dL (7-18); eGFR NON AFRICAN AMERICAN > 90 mL/min (90-120)
[2020-01-16 07:19] LABS: GLUCOSE 87 mg/dL (74-106)
--- NOTE | 2020-01-16 08:00 | NUR ---
PATIENT IN BED WITH IV INTACT. STATES SHE IS SUPPOSED TO GO HOME TO DAY AND IS ASKING QUESTIONS ABOUT BEING DISCHARGED. STATED SHE WANTED DISCONNECTED FROM IV. DID PATIENT ASKED. PATIENT UP TO AMBULATE IN HALLWAYS WITH NO PROBLEMS AT THIS TIME. EXPLAINED TO PATIENT I COULD NOT DC HER UNTIL I RECIEVED DC ORDERS AND PAPERS. VERBALIZED UNDERSTANDING. CALL LIGHT WITHIN REACH.
[2020-01-16 08:17] LABS: BASOPHILS 0.3 % (0-2); EOSINOPHILS 0.8 % (0-7); HEMATOCRIT 29.7 % (36.0-48.0); IMMATURE GRANULOCYTES 0.2 % (0-5); LYMPHOCYTES 12.9 % (15-50); MCH 20.4 pg (26.0-34.0); MONOCYTES 6.7 % (2-11); NEUTROPHILS 79.1 % (40-80); PLATELET COUNT 143 10x3/uL (130-400); RBC 4.36 10x6/uL (4.00-5.40); WBC 6.6 10x3/uL (4.8-10.8)
[2020-01-16 08:18] LABS: HEMOGLOBIN 8.9 g/dL (12-16); MCV 68.1 fL (80.0-100.0)
[2020-01-16 09:14] VITALS: BP 123/62
--- NOTE | 2020-01-16 09:22 | NUR ---
NOTIFIED DR. DAMON THAT PATIENT WAS POSSIBLE GOING TO LEAVE AMA WHEN HER RIDE GETS HERE BC SHE STATED THE PHYSICIAN SAID SHE WAS ONLY HERE FOR BLOOD.
[2020-01-16 12:24] VITALS: BP 149/105
--- NOTE | 2020-01-16 14:00 | NUR ---
PATIENT REFUSED MEDS AND STATED THAT SHE IS GOING HOME SO SHE DOESNT NEED THEM. IV INTACT. WAITING FOR DC. CALL LIGHT WITHIN REACH.
--- NOTE | 2020-01-16 14:45 | MORECARE ---
CASE MANAGEMENT DISCHARGE SUMMARY PATIENT: RICH FARAH UNIT: [id number] ADM DATE: 01/14/20 AGE: 49 : 66 SEX: F ROOM/BED: D.2228 AUTHOR: KAMI FUENTES PHYSICIAN: REFERRING PHYSICIAN: CORBIN GILBERT MD DATE OF SERVICE: 01/16/20 Discharge Plan Patient Name: RICH FARAH [facility] [facility] 1970 Planned Disposition: Home Anticipated Discharge Date: Discharge Date: Expected LOS: Initial Reviewer: [email or web address] Initial Review Date: 01/16/2020 Generated: 01/16/20 3:44 pm DCPIA - Discharge Planning Initial Assessment Updated by [email or web address]: Lora Tarango on 01/16/20 2:41 pm * Is the patient Alert and Oriented? Yes * PCP Dr. Segundo * Pharmacy [facility] * Preadmission Environment Home with Family * ADLs Independent * Equipment None * List name and contact numbers for known caregivers / representatives who currently or will assist patient after discharge: Ninfa Friedman [facility] [phone] * Verbal permission to speak to the caregivers and representatives has been obtained from the patient. Yes * Community resources currently utilized None * Additional services required to return to the preadmission environment? No * Can the patient safely return to the preadmission environment? Yes * Has this patient been hospitalized within the prior 30 days at any hospital? Yes Patient Name: RICH FARAH Page 36060 at 1445 All edits/amendments must be made on the electronic document DICTATION DATE: 01/16/20 1444 CINDER DUMP CRANE OPERATOR: MAYCOL 01/16/20 1444 RPT#: [id number] DC DATE: STATUS: ADM IN [facility] [address] [place] [address] END OF REPORT
--- NOTE | 2020-01-16 14:52 | MORECARE ---
CASE MANAGEMENT DISCHARGE SUMMARY PATIENT: RICH FARAH UNIT: [id number] ADM DATE: 01/14/20 AGE: 49 : 66 SEX: F ROOM/BED: D.2228 AUTHOR: GINADOC PHYSICIAN: REFERRING PHYSICIAN: CORBIN GILBERT MD DATE OF SERVICE: 01/16/20 Discharge Plan Patient Name: RICH FARAH Facility: [facility]:[place] : 1970 Planned Disposition: Home Anticipated Discharge Date: Discharge Date: Expected LOS: Initial Reviewer: [email or web address] Initial Review Date: 01/16/2020 Generated: 01/16/20 3:51 pm Comments DCP- Discharge Planning Updated by [id number]: Lora Tarango on 01/16/20 1:[address] Patient Name: IRCH FARAH Admission Status: ER Accout number: [id number] Admission Date: 01-14-2020 : 1970 Admission Diagnosis: Attending: CORBIN GILBERT Current LOS: 2 Anticipated DC Date: Planned Disposition: Home Primary Insurance: MEDICAID [place] Discharge Planning Comments: Received discharge orders. CM met with patient to discuss needs. She lives with her sister at [address] [place] [address] in [place]. She states that her plan is to return with her sister. Declines need for home health or DME. States she does need to ride the [employer] bus home. I called [employer] and spoke with Lizzie. They will call the floor when close to picket labor union. Confirmation #[id number]. Home today via [employer]. Nursery Manager: Lora Tarango DCPIA - Discharge Planning Initial Assessment Updated by [id number]: Lora Tarango on 01/16/20 2:41 pm * Is the patient Alert and Oriented? Yes * PCP Dr. Segundo * Pharmacy [facility] * Preadmission Environment Home with Family * ADLs Independent * Equipment None * List name and contact numbers for known caregivers / representatives who currently or will assist patient after discharge: Ninfa zuniga - [phone] * Verbal permission to speak to the caregivers and representatives has been obtained from the patient. Yes * Community resources currently utilized None * Additional services required to return to the preadmission environment? No * Can the patient safely return to the preadmission environment? Yes * Has this patient been hospitalized within the prior 30 days at any hospital? Yes Last DP export: 01/16/20 1:45 p Patient Name: RICH FARAH Page [id number] at 1452 All edits/amendments must be made on the electronic document DICTATION DATE: 01/16/201450 TENNIS PLAYER: MAYCOL 01/16/201450 RPT#: [id number] DC DATE: STATUS: ADM IN [facility] [address] [place] [address] END OF REPORT
[2020-01-16] MEDS ORDERED: PROTONIX40 MG PO (14:57)
[2020-01-16] MEDS ORDERED: LEVOFLOXACIN500 MG PO (14:58)
--- NOTE | 2020-01-16 15:30 | NUR ---
PATIENT IV REMOVED WITH CATH TIP INTACT. PATIENT BEING DC'D.
--- NOTE | 2020-01-16 15:47 | NUR ---
PATIENT RECIEVED DC INSTRUCTIONS. VERBALIZED UNDERSTANDING. NO QUESTIONS AT THIS TIME. EXPLAINED TO EMOTIONALLY IMPAIRED TEACHER MEDS FROM [facility] IN [place]. VERBALIZED UNDERSTANDING. AWAITING TRANSPORTATION FOR DC. CALL LIGHT WITHIN REACH.
--- NOTE | 2020-01-16 16:00 | NUR ---
ESCORTED PATIENT DOWN TO [employer] BUS WITH PERSONAL BELONGINGS VIA WC AT THIS TIME.
--- NOTE | 2020-01-17 08:04 | MORECARE ---
CASE MANAGEMENT DISCHARGE SUMMARY PATIENT: RICH FARAH UNIT: [id number] ADM DATE: 01/14/20 AGE: 49 : 66 SEX: F ROOM/BED: D.2228 AUTHOR: GINADOC PHYSICIAN: REFERRING PHYSICIAN: CORBIN GILBERT MD DATE OF SERVICE: 01/17/20 Discharge Plan Patient Name: RICH FARAH Facility: [facility]:[place] : 1970 Planned Disposition: Home Anticipated Discharge Date: Discharge Date: 01/16/2020 Expected LOS: 0 Initial Reviewer: [email or web address] Initial Review Date: 01/16/2020 Generated: 01/17/20 9:03 am Comments DCP- Discharge Planning Updated by [id number]: Lora Tarango on 01/16/20 1:[address] Patient Name: RICH FARAH Admission Status: ER Accout number: [id number] Admission Date: 01-14-2020 : 1970 Admission Diagnosis: Attending: CORBIN GILBERT Current LOS: 2 Anticipated DC Date: Planned Disposition: Home Primary Insurance: MEDICAID [place] Discharge Planning Comments: Received discharge orders. CM met with patient to discuss needs. She lives with her sister at [address] [place] [address] in [place]. She states that her plan is to return with her sister. Declines need for home health or DME. States she does need to ride the [employer] bus home. I called [employer] and spoke with Lizzie. They will call the floor when close to quill picking machine operator. Confirmation #[id number]. Home today via [employer]. Funeral Attendant: Lora Tarango DCPIA - Discharge Planning Initial Assessment Updated by [id number]: Lora Tarango on 01/16/20 2:41 pm * Is the patient Alert and Oriented? Yes * PCP Dr. Segundo * [facility] * Preadmission Environment Home with Family * ADLs Independent * Equipment None * List name and contact numbers for known caregivers / representatives who currently or will assist patient after discharge: Ninfa zuniga - [phone] * Verbal permission to speak to the caregivers and representatives has been obtained from the patient. Yes * Community resources currently utilized None * Additional services required to return to the preadmission environment? No * Can the patient safely return to the preadmission environment? Yes * Has this patient been hospitalized within the prior 30 days at any hospital? Yes Last DP export: 01/16/20 1:52 p Patient Name: RICH FARAH Page [id number] at 0804 All edits/amendments must be made on the electronic document DICTATION DATE: 01/17/20802 SENIOR SQL DBA: MAYCOL 01/17/20802 RPT#: [id number] DC DATE:01/16/20 STATUS: DIS IN [facility] [address] [place] [address] END OF REPORT
== END 2020-01-16 16:09 | disposition home or self-care (01) | DRG 689 ==
LOC: D.ER 11:51 → D.MS 15:24
PROVIDERS: Family Medicine; Internal Medicine Pulmonary Disease; ADMIT Internal Medicine Nephrology; ATTEND Internal Medicine Nephrology
DX: N39.0 Urinary tract infection, site not specified (principal); J18.9 Pneumonia, unspecified organism; G92 Toxic encephalopathy; K76.6 Portal hypertension; F17.203 Nicotine dependence unspecified, with withdrawal; K74.60 Unspecified cirrhosis of liver; D64.9 Anemia, unspecified; E87.5 Hyperkalemia; J44.9 Chronic obstructive pulmonary disease, unspecified; B19.20 Unspecified viral hepatitis C without hepatic coma; F31.9 Bipolar disorder, unspecified

== ENCOUNTER 2021-02-03 21:19 | Inpatient (IN) | payer MEDICAID ==
[~2021-02-03] VITALS: Ht 167.6 cm; Wt 57.6 kg
[~2021-02-03 21:19] MED LIST changes: +LEVOFLOXACIN500 MG PO
[2021-02-03 22:27] LABS: BILIRUBIN NEGATIVE (NEGATIVE); KETONE NEGATIVE (NEGATIVE); NITRITE NEGATIVE (NEGATIVE); UROBILINOGEN NORMAL mg/dL (< 2)
[2021-02-03 22:29] LABS: BACTERIA MODERATE HPF (NONE SEEN); SQUAMOUS EPITHELIAL 0-5 HPF (0-4); WHITE CELLS - URINE 0-5 HPF (0-4)
[2021-02-03 22:48] LABS: BASOPHILS 0.4 % (0-2); EOSINOPHILS 1.5 % (0-7); HEMATOCRIT 25.2 % (36.0-48.0); IMMATURE GRANULOCYTES 0.1 % (0-5); LYMPHOCYTE ABS# 0.72 10x3/uL (1.18-3.74); LYMPHOCYTES 10.7 % (15-50); MCH 20.4 pg (26.0-34.0); MCHC 28.6 g/dL (31.0-37.0); MCV 71.4 fL (80.0-100.0); MEAN PLATELET VOLUME 9.1 fL (7.4-10.4); MONOCYTES 5.9 % (2-11); NEUTROPHIL ABS# 5.48 10x3/uL (1.56-6.13); NEUTROPHILS 81.4 % (40-80); RBC 3.53 10x6/uL (4.00-5.40); RDW 19.3 % (11.5-14.5); WBC 6.7 10x3/uL (4.8-10.8)
[2021-02-03 22:55] LABS: CALC OSMOLALITY 271 mosm/kg (275-300); CALCIUM 8.7 mg/dL (8.5-10.1); CARBON DIOXIDE 29.1 mmol/L (21.0-32.0); CHLORIDE - SERUM 100 mmol/L (98-107); CREATININE - SERUM 0.7 mg/dL (0.6-1.3); GLUCOSE 87 mg/dL (74-106); POTASSIUM - SERUM 3.7 mmol/L (3.5-5.1); SODIUM 134 mmol/L (136-145); UREA NITROGEN 27 mg/dL (7-18); eGFR NON AFRICAN AMERICAN > 90 mL/min (90-120)
[2021-02-03 22:55] LABS: HEMOGLOBIN 7.2 g/dL (12-16); PLATELET COUNT 233 10x3/uL (130-400)
[2021-02-03 23:04] LABS: ALBUMIN 2.9 g/dL (3.4-5.0); ALKALINE PHOSPHATASE 103 U/L (30-120); ALT (SGPT) 11 U/L (10-68); AMYLASE - SERUM 29 U/L (25-115); BILIRUBIN - TOTAL 0.62 mg/dL (0.2-1.3); LIPASE 50 U/L (73-393); PROTEIN - SERUM 6.4 g/dL (6.4-8.2); TROPONIN-I < 0.017 ng/mL (0.000-0.060)
[2021-02-03 23:19] VITALS: BP 115/76
[2021-02-04] VITALS (11 sets, daily range): BP systolic 105–177; BP diastolic 78–96; Ht 167.6 cm; Wt 57.6 kg
--- NOTE | 2021-02-04 00:10 | NUR ---
FECAL SAMPLE NEGATIVE PHYSICIAN NOTIFIED,
[2021-02-04 00:52] LABS: INR 1.48 (0.85-1.17); PROTIME 16.6 SECONDS (11.6-15.0)
--- NOTE | 2021-02-04 01:00 | NUR ---
PATIENT UNABLE TO SIGN CONSENT. FAMILY CONSENT ATTEMPTED FOR BLOOD PRODUCTS, BUT AFTER NUMEROUS PHONE CALLS, NOBODY HAS ANSWERED.
--- NOTE | 2021-02-04 02:25 | NUR ---
REC'D PATIENT FROM ER VIA STRETCHER. ASSISTED PATIENT TO BED. PATIENT IS LETHARGIC AND DIFFICULT TO OBTAIN INFORMATION FROM AT THIS TIME. IV TO LEFT FA AND RIGHT AC WITH NO SIGNS OF INFILTRATION. SCD HOSE PLACED. INCENTIVE SPIROMETER EXPLAINED, PATIENT UNABLE TO DEMONSTRATE AT THIS TIME. BED IN LOWEST POSITION, CALL LIGHT IN REACH, AND BED ALARM ON. ENCOURAGED PATIENT TO CALL WITH NEEDS.
--- NOTE | 2021-02-04 02:30 | NUR ---
PLACED 16F GOMEZ CATH PER ORDERS.
[2021-02-04 02:57] LABS: UDS - AMPHET POSITIVE QUAL (NEGATIVE); UDS - BARB NEGATIVE QUAL (NEGATIVE); UDS - BENZO NEGATIVE QUAL (NEGATIVE); UDS - COCAINE NEGATIVE QUAL (NEGATIVE); UDS - OPIATE NEGATIVE QUAL (NEGATIVE); UDS - PCP NEGATIVE QUAL (NEGATIVE); UDS - THC POSITIVE QUAL (NEGATIVE)
--- NOTE | 2021-02-04 03:15 | NUR ---
PATIENT AWAKE WITH C/O NEEDING TO VOID AND GOMEZ CAUSING PAIN. PATIENT STATES HER PAIN IS 10/10 IN HER LOWER ABDOMEN. I EXPLAINED TO THE PATIENT AT THIS TIME THAT A BLOOD TRANSFUSION HAS BEEN ORDERED FOR HER AND THAT HER HGB IS LOW. WHEN ASKED, THE PATIENT STATED SHE HAS HAD "LOTS OF BLOOD TRANSFUSIONS." PATIENT IS COHERENT AT THIS TIME. PATIENT IS ABLE TO TELL ME SHE LIVES IN [place] WITH HER AUNT, HOWEVER, DOES NOT REMEMBER HER ENTIRE PHONE NUMBER. PATIENT IS ALSO ABLE TO TELL ME HER SISTER'S NAME, THE YEAR, AND THAT SHE IS IN THE HOSPITAL. PATIENT WAS ABLE TO SIGN BLOOD CONSENT.
--- NOTE | 2021-02-04 03:40 | NUR ---
BEGAN TRANSFUSING FIRST UNIT PRBC'S
--- NOTE | 2021-02-04 07:30 | NUR ---
BLOOD INFUSION COMPLETE WITH NO ADVERSE REACTIONS NOTED. PATIENT TOLERTATED WELL.
--- NOTE | 2021-02-04 08:55 | NUR ---
NOTIFIED BY [facility] IN ULTRASOUND PATIENT HAS ORDER FOR TRANSVAGINAL ULTRASOUND AND THE HER GOMEZ HAS TO BE REMOVED. REMOVED GOMEZ WITH BULB INTACT. FOUL ODOR NOTED WITH BLOOD TINGED URINE IN BAG. ICE WATER GIVEN WILL CONTINUE TO MONITOR.
--- NOTE | 2021-02-04 13:50 | NUR ---
CONSENTS SIGNED FOR EGD AND MEDICAITONS ADMINISTERED. PATIENT TRANSPORTED FOR EGD PER STAFF.
[2021-02-04 15:39] LABS: BASOPHILS 0.6 % (0-2); EOSINOPHILS 1.8 % (0-7); IMMATURE GRANULOCYTES 0.4 % (0-5); LYMPHOCYTE ABS# 0.83 10x3/uL (1.18-3.74); LYMPHOCYTES 11.6 % (15-50); MCH 22.6 pg (26.0-34.0); MCHC 30.2 g/dL (31.0-37.0); MEAN PLATELET VOLUME 9.1 fL (7.4-10.4); MONOCYTES 5.7 % (2-11); NEUTROPHIL ABS# 5.74 10x3/uL (1.56-6.13); NEUTROPHILS 79.9 % (40-80); RDW 20.6 % (11.5-14.5); WBC 7.2 10x3/uL (4.8-10.8)
[2021-02-04 15:41] LABS: HEMATOCRIT 34.1 % (36.0-48.0); HEMOGLOBIN 10.3 g/dL (12-16); MCV 74.8 fL (80.0-100.0); PLATELET COUNT 184 10x3/uL (130-400); RBC 4.56 10x6/uL (4.00-5.40)
--- NOTE | 2021-02-04 15:48 | NUR ---
INSERTED 16 MOZAMBICAN FOLET CATHETER ONCE YELLOW URINE RETURN BULB INFLATED PATIENT STARTED BLEEDING MODERATE AMOUNT OF BLOOD IN GOMEZ AND AROUND INSERTIONS SITE. NOTIFIED TRAFFIC SIGN SUPERVISOR STATED SHE WILL BE HERE TO SEE PATIENT IN A FEW MINUTES. WILLONTINUE TO MONITOR.
[2021-02-04 16:08] LABS: ALBUMIN 3.1 g/dL (3.4-5.0); ALKALINE PHOSPHATASE 105 U/L (30-120); ALT (SGPT) 17 U/L (10-68); BILIRUBIN - TOTAL 1.85 mg/dL (0.2-1.3); CALC OSMOLALITY 275 mosm/kg (275-300); CALCIUM 8.9 mg/dL (8.5-10.1); CARBON DIOXIDE 26.9 mmol/L (21.0-32.0); CHLORIDE - SERUM 102 mmol/L (98-107); CREATININE - SERUM 0.6 mg/dL (0.6-1.3); GLUCOSE 83 mg/dL (74-106); MAGNESIUM - SERUM 1.7 mg/dL (1.8-2.4); PROTEIN - SERUM 6.5 g/dL (6.4-8.2); SODIUM 137 mmol/L (136-145); THYROID STIMULATING HORMONE 2.74 uIU/mL (0.36-3.74); UREA NITROGEN 20 mg/dL (7-18); eGFR NON AFRICAN AMERICAN > 90 mL/min (90-120)
--- NOTE | 2021-02-04 16:20 | NUR ---
SHAREPOINT NET DEVELOPER VISITED PATIENT INSTRUCTED TO MONITOR AND FLUSH NEEDED TO PREVENT CLOTS AND SHE WILL FOLLOW UP WITH HER TOMORROW WILL NOTIFY ONCOMING SHIFT IN REPORT.
[2021-02-04 18:14] LABS: HEMATOCRIT 29.2 % (36.0-48.0)
[2021-02-05] VITALS: BP 158/89
[2021-02-05 00:48] LABS: HEMATOCRIT 29.5 % (36.0-48.0)
[2021-02-05 01:19] LABS: HEMATOCRIT 28.8 % (36.0-48.0); HEMOGLOBIN 8.8 g/dL (12-16)
[2021-02-05 04:00] VITALS: BP 168/98
[2021-02-05 05:36] LABS: BASOPHILS 0.7 % (0-2); EOSINOPHILS 1.9 % (0-7); HEMATOCRIT 29.5 % (36.0-48.0); HEMOGLOBIN 8.7 g/dL (12-16); IMMATURE GRANULOCYTES 0.2 % (0-5); LYMPHOCYTE ABS# 0.75 10x3/uL (1.18-3.74); MCH 21.8 pg (26.0-34.0); MCHC 29.5 g/dL (31.0-37.0); MCV 73.9 fL (80.0-100.0); MEAN PLATELET VOLUME 9.2 fL (7.4-10.4); MONOCYTES 10.6 % (2-11); NEUTROPHIL ABS# 4.25 10x3/uL (1.56-6.13); NEUTROPHILS 73.6 % (40-80); PLATELET COUNT 194 10x3/uL (130-400); RBC 3.99 10x6/uL (4.00-5.40); RDW 20.6 % (11.5-14.5); WBC 5.8 10x3/uL (4.8-10.8)
[2021-02-05 06:02] LABS: ALBUMIN 2.7 g/dL (3.4-5.0); ALKALINE PHOSPHATASE 91 U/L (30-120); BILIRUBIN - TOTAL 1.05 mg/dL (0.2-1.3); CALCIUM 8.3 mg/dL (8.5-10.1); CARBON DIOXIDE 23.6 mmol/L (21.0-32.0); CHLORIDE - SERUM 104 mmol/L (98-107); CREATININE - SERUM 0.7 mg/dL (0.6-1.3); GLUCOSE 88 mg/dL (74-106); MAGNESIUM - SERUM 1.7 mg/dL (1.8-2.4); PHOSPHOROUS 2.6 mg/dL (2.5-4.9); POTASSIUM - SERUM 3.7 mmol/L (3.5-5.1); PROTEIN - SERUM 6.1 g/dL (6.4-8.2); SODIUM 137 mmol/L (136-145); eGFR NON AFRICAN AMERICAN > 90 mL/min (90-120)
[2021-02-05 06:06] LABS: ALT (SGPT) 12 U/L (10-68); CALC OSMOLALITY 273 mosm/kg (275-300); UREA NITROGEN 14 mg/dL (7-18)
--- NOTE | 2021-02-05 07:30 | NUR ---
Last evening after ropunds/report, pt was found to have pulled IV out, arm bleeding all over along with multiple blood clots the size of cheeseburgers from [employer] on the bed and in the dan bag. Dan was flushed per instructions and leaking around cath. Pt extremely agitated, pulling at dan and scratches self in the [place]rett area. Pt did verbalize pain and anxiousnes. This nurse spoke with WILL Cristina o/c and also spoke with regarding this pt. Dan was changed to an 18 FR to facilitate better flow. Pt was also given Haldol to assist with extreme agitation and anxiousness along with possible withdrawl. In bed resting at this time. Medication medicated or unmedicated does change significantly at times. Pt has been compliant taking meds and very cooperative after Haldol. Much lass anxious and able to follow simple directions better without crying and yelling out or c/o anxiety to staff.
[2021-02-05 09:00] VITALS: BP 148/86
[2021-02-05 10:12] LABS: HEPATITIS C ANTIBODY >11.0 S/CO RAT (0.0-0.9)
--- NOTE | 2021-02-05 10:17 | NUR ---
UPON ENTERING ROOM FOUND GOMEZ CATHETER REMOVED WITH BULB INFLATED. WILL NOTIFY GLOBAL CEO AND CONTINUE TO MONITOR.
--- NOTE | 2021-02-05 11:41 | NUR ---
BAR PORTER MAKING ROUNDS NOTIFIED THAT PATIENT REMOVED GOMEZ. NO NEW ORDER NOTED. WILL CONTINUE TO MONITOR.
[2021-02-05 13:50] VITALS: BP 149/77
--- NOTE | 2021-02-05 15:16 | NUR ---
IV SITED TO LEFT UPPER ARM X1 STICK,20G. ASEPTIC TECH USED
[2021-02-05 17:39] VITALS: BP 152/85
--- NOTE | 2021-02-05 19:19 | NUR ---
Assumed care of pt after report/rounds. Pt in bed sleeping. Unable to quntify pain or state where. WONGS scale shows 3/10. Pt continues to remain confused. Was observed trying to climb over bed rail to bathroom on frequent visual checks. Assisted to bathroom and back to bed. IV in Lt upper arm is patent and pt has not pulled out so far this shift. Remains naked in bed and immediately pulls off gown when applied. In and out of sleep state but, does wake easily to voice this evening. Urine remains dark and bloody.
[2021-02-05 20:00] VITALS: BP 168/97
[2021-02-06] VITALS: BP 140/87
--- NOTE | 2021-02-06 02:12 | NUR ---
Pt was found trying to toilet self and assisted by staff on frequent visual checks. Pt has also pulled IV out and bleeding from prior site. Assisted to clean up same. Awaiting ICU nurse to assist with resiting.
--- NOTE | 2021-02-06 02:47 | NUR ---
ICU nurse resited IV to RFA. fluids restarted per order. Pt tolerated well. Pt education done regarding needs for IV and ordered fluids.
[2021-02-06 04:00] VITALS: BP 150/78
--- NOTE | 2021-02-06 04:23 | NUR ---
Pt did utilize call light to request both the bathroom and pain medication. Pt is A&O to self and time along with place. Pt did tell this nurse, "You know I have a UTI. I didn't realize they could get so bad!" Pt did also verbalize fear of, "What ever procedure they may do to me tomorrow". Therapeutic communication with pt. Pt also requested Jello and some warm tea. Same was provided. Pt in bed resting at this time.
[2021-02-06 06:05] LABS: BASOPHILS 0.5 % (0-2); EOSINOPHILS 3.2 % (0-7); HEMATOCRIT 26.3 % (36.0-48.0); HEMOGLOBIN 7.9 g/dL (12-16); IMMATURE GRANULOCYTES 0.5 % (0-5); LYMPHOCYTE ABS# 0.67 10x3/uL (1.18-3.74); LYMPHOCYTES 11.8 % (15-50); MCH 22.3 pg (26.0-34.0); MCV 74.1 fL (80.0-100.0); MEAN PLATELET VOLUME 9.4 fL (7.4-10.4); NEUTROPHIL ABS# 4.08 10x3/uL (1.56-6.13); PLATELET COUNT 180 10x3/uL (130-400); RBC 3.55 10x6/uL (4.00-5.40); RDW 20.8 % (11.5-14.5); WBC 5.7 10x3/uL (4.8-10.8)
[2021-02-06 06:29] LABS: ALBUMIN 2.6 g/dL (3.4-5.0); ALKALINE PHOSPHATASE 93 U/L (30-120); ALT (SGPT) 14 U/L (10-68); BILIRUBIN - TOTAL 0.83 mg/dL (0.2-1.3); CALC OSMOLALITY 269 mosm/kg (275-300); CALCIUM 7.9 mg/dL (8.5-10.1); CARBON DIOXIDE 23.9 mmol/L (21.0-32.0); CHLORIDE - SERUM 102 mmol/L (98-107); CREATININE - SERUM 0.8 mg/dL (0.6-1.3); GLUCOSE 119 mg/dL (74-106); MAGNESIUM - SERUM 1.6 mg/dL (1.8-2.4); PHOSPHOROUS 2.5 mg/dL (2.5-4.9); POTASSIUM - SERUM 3.4 mmol/L (3.5-5.1); PROTEIN - SERUM 5.5 g/dL (6.4-8.2); SODIUM 135 mmol/L (136-145); eGFR NON AFRICAN AMERICAN 80 mL/min (90-120)
[2021-02-06 06:31] LABS: UREA NITROGEN 10 mg/dL (7-18)
--- NOTE | 2021-02-06 07:09 | NUR ---
During report/rounds, walked into pt's room with oncoming nurse and Cut Out Press Operator to find pt in bed but, room had odd smell. Similar smell to last evening when pt was found vaping in room. This nurse held hand out to pt who handed this nurse her vape. Pt reeducated on use of vape in hospital and with nicotine patch on along with increased risk of another stroke via same. Pt verbalized understanding. Charge nurse notified.
[2021-02-06 09:08] VITALS: BP 158/90
[2021-02-06 10:32] LABS: INR 1.38 (0.85-1.17); PROTIME 15.7 SECONDS (11.6-15.0)
--- NOTE | 2021-02-06 14:25 | NUR ---
Nutrition follow-up: Pt continues NPO at this time; has had multipe procedures Labs reviewed Wt: 126# +BMs per nurse Posssible transfer to [facility] soon Recommendations: If diet unable to begin today, recommend starting ProcalAmine PPN @ 75 ml/hr short term to provide: 441 kcal, 54 gm protein RDN will follow-up: 02/08/21
[2021-02-06 14:48] VITALS: BP 129/69
[2021-02-06 17:47] VITALS: BP 155/89
--- NOTE | 2021-02-06 17:54 | NUR ---
1000 - FACTORY EXPERT REPORTS PT CRYING, STATING THAT THERE IS NO PHONE IN HER ROOM AND THAT HER FAMILY DOESN'T EVEN KNOW SHE IS HERE. PT MORE CALM WHEN RN WENT TO ROOM. 1200 - DIETARY REPORTS PT CRYING, STATING THAT HER FAMILY DOESN'T EVEN KNOW SHE IS HERE. PT APPEARS TO BE SLEEPING WHEN RN WENT TO ROOM. 1400 - PT ASKED AGAIN FOR PHONE TO TRY TO CALL FAMILY. PT ADVISED THAT WE WOULD TRY TO LOCATE PHONE FOR ROOM BUT THAT WE COULD TRY TO CALL FAMILY FROM THE DESK. 1600 - PT OUT OF BED, STATES THAT SHE IS "WALKING OUT" IF SHE DOESN'T NOT GET A PHONE TO CALL HER FAMILY COLLECT. STATES "CALL THE LAW IF YOU HAVE TO." WHEN ASKED FOR THE PHONE NUMBER, PT GAVE TWO POSSIBLE NUMBERS. BOTH NUMBERS DIALED WITH NO ANSWER FROM EITHER. PHONE NUMBERS LISTED NEXT OF KIN CALLED WITH NO ANSWER. REPORTED TO PT THAT WE WERE UNABLE TO REACH HER FAMILY. PT TRIED AGAIN TO LEAVE. 1630 - HALDOL GIVEN ORDERED FOR AGITATION. WILL CONTINUE TO MONITOR.
[2021-02-06 20:00] VITALS: BP 155/95
--- NOTE | 2021-02-06 22:51 | NUR ---
PT RESTING IN BED. PT COMPLAINED OF ABD PAIN. PAIN MEDICATION WAS GIVEN. NO OTHER COMPLAINTS AT THIS TIME. SLEEPING RIGHT NOW. BED IN LOWEST POSITION WITH CALL CAMACHO LIGHT IN REACH.
[2021-02-07] VITALS: BP 160/99
[2021-02-07 04:00] VITALS: BP 162/92
[2021-02-07 07:03] LABS: EOSINOPHILS 5.1 % (0-7); HEMATOCRIT 27.9 % (36.0-48.0); HEMOGLOBIN 8.2 g/dL (12-16); IMMATURE GRANULOCYTES 0.2 % (0-5); LYMPHOCYTE ABS# 0.56 10x3/uL (1.18-3.74); LYMPHOCYTES 13.7 % (15-50); MCHC 29.4 g/dL (31.0-37.0); MCV 74.8 fL (80.0-100.0); MEAN PLATELET VOLUME 9.1 fL (7.4-10.4); MONOCYTES 11.8 % (2-11); NEUTROPHIL ABS# 2.78 10x3/uL (1.56-6.13); NEUTROPHILS 68.2 % (40-80); PLATELET COUNT 177 10x3/uL (130-400); RBC 3.73 10x6/uL (4.00-5.40); RDW 21.3 % (11.5-14.5)
[2021-02-07 07:09] LABS: WBC 4.1 10x3/uL (4.8-10.8)
[2021-02-07 07:18] LABS: ALBUMIN 2.7 g/dL (3.4-5.0); ALKALINE PHOSPHATASE 100 U/L (30-120); ALT (SGPT) 17 U/L (10-68); BILIRUBIN - TOTAL 0.71 mg/dL (0.2-1.3); CALC OSMOLALITY 273 mosm/kg (275-300); CALCIUM 8.3 mg/dL (8.5-10.1); CARBON DIOXIDE 25.5 mmol/L (21.0-32.0); CHLORIDE - SERUM 103 mmol/L (98-107); CREATININE - SERUM 0.6 mg/dL (0.6-1.3); GLUCOSE 90 mg/dL (74-106); MAGNESIUM - SERUM 1.6 mg/dL (1.8-2.4); PHOSPHOROUS 2.9 mg/dL (2.5-4.9); POTASSIUM - SERUM 3.8 mmol/L (3.5-5.1); PROTEIN - SERUM 5.7 g/dL (6.4-8.2); SODIUM 138 mmol/L (136-145); eGFR NON AFRICAN AMERICAN > 90 mL/min (90-120)
[2021-02-07 07:20] LABS: UREA NITROGEN 7 mg/dL (7-18)
--- NOTE | 2021-02-07 08:34 | NUR ---
PT REQUESTED TO BE UNHOOKED TO GO UTSIDE TO FIND A CIGARETTE. EXPLAINED TO PATIENT THAT IT IS AGAINST THE LAW TO SMOKE ON HOSPITAL GROUNDS AND AGAINS HOSPITAL POLICY TO LEAVE THE FLOOR. WHEN I REFUSED TO UNHOOK THE PATIENT, SHE PROCEEDED TO SAY THAT SHE WOULD TAKE IT (THE IV) OUT HERSELF. EXPLAINED TO PATIENT THAT IF SHE LEAVES THE HOSPITAL IT WILL BE AGAINST MEDICAL ADVICE.
[2021-02-07 08:44] VITALS: BP 161/87
--- NOTE | 2021-02-07 11:16 | NUR ---
PT REQUESTED PAIN MEDICATION, BUT WHEN I RETURNED TO ROOM WITH MEDICATION, IT WAS DISCOVERED THAT THE PIV HAD BEEN PULLED OUT. PT ADMITTED TO PULLING IV OUT. EXPLAINED TO PT THAT PAIN MEDICATION CAN NOT BE GIVEN WITHOUT A WORKING IV. PT EXPRESSED THAT SHE JUST WANTED TO GO. I TOLD HER THAT I COULD CALL THE PROVIDER AND TRY TO GET A DISCHARGE ORDER. BEFORE THE PROVIDER COULD CALL BACK, PT GATHERED HER BELONGINGS AND PROCEEDED TO WALK OUT. IT WAS EXPLAINED TO PT THAT SHE WAS LEAVING THE HOSPITAL AGAINST MEDICAL ADVICE IF A DISCHARGE ORDER WAS NOT RECEIVED. PT CONTINUED TO WALK OFF OF UNIT.
== END 2021-02-07 11:25 | disposition left against medical advice (07) | DRG 432 ==
LOC: D.ER 21:19 → D.MS 02-04 01:33
PROVIDERS: Family Medicine; Internal Medicine Gastroenterology; ADMIT Emergency Medicine; ATTEND Emergency Medicine
PROC: 0DB78ZX Excision of Stomach, Pylorus, Via Natural or Artificial Opening Endoscopic, Diagnostic (ICD-10-PCS; principal; 2021-02-04 13:45)
DX: K74.60 Unspecified cirrhosis of liver (principal); K25.4 Chronic or unspecified gastric ulcer with hemorrhage; I85.01 Esophageal varices with bleeding; N39.0 Urinary tract infection, site not specified; K76.6 Portal hypertension; D62 Acute posthemorrhagic anemia; D50.9 Iron deficiency anemia, unspecified; J43.9 Emphysema, unspecified; F31.9 Bipolar disorder, unspecified; Z86.19 Personal history of other infectious and parasitic diseases; F15.10 Other stimulant abuse, uncomplicated; F12.90 Cannabis use, unspecified, uncomplicated; I86.4 Gastric varices; I86.8 Varicose veins of other specified sites; N85.2 Hypertrophy of uterus; K31.89 Other diseases of stomach and duodenum; B19.20 Unspecified viral hepatitis C without hepatic coma